=== PATIENT | male | born 1945 | race Caucasian/White ===

== ENCOUNTER → 2016-10-18 | Outpatient (CLI) | payer OTHER ==
[~2016-10-18] MED LIST: IOPAMIDOL (ISOVUE-300) 100 ML BTL IV ONE
--- NOTE | 2016-10-18 18:15 | CT ---
CT Pelvis With IV Contrast on October 18, 2016 Indication: 71-year-old man with history of prostate adenocarcinoma and increasing PSA values. Technique: 1.25 mm thick helically acquired slices were obtained through the pelvis following unevent ful intravenous administration of 90 mL of Isovue-300. Dose reduction techniques were utilized. Comparison: MRI of the pelvis dated August 13, 2016. Findings: No enlarged lymph node or mass has developed within the pelvis. Normal-sized lymph nodes an d veins along the external iliac vale chains are unchanged since 2016. The prostate gland remains mildly enlarged with no discrete mass. Seminal vesicles are symmetric and normal in size. The right indirect inguinal hernia is unchanged and contains the anterior wall of the urinary bladder . The MRI report erroneously states it contains a loop of bladder, that is incorrect, the inguinal he rnia contains the urinary bladder. The left indirect inguinal hernia contains only fat. No bladder wa ll mass or hydronephrosis. The opacified distal ureters are normal in caliber with no filling defect. Bowel pattern normal. Extensive diverticulosis of the sigmoid colon is unchanged. No lytic or blastic bone lesions. The superior third of the sacroiliac joints are partially ankylosed . Impression: 1. No lymphadenopathy or mass has developed since August 2016. 2. No sclerotic bone metastasis or explanation for elevated PSA value. 3. Bilateral indirect inguinal hernias. 4. The right indirect inguinal hernia contains the anterior lateral wall of the urinary bladder (does not contain bowel).
== END ==
LOC: FIMAGING 12:29
PROVIDERS: ATTEND Urology
DX: R97.20 Elevated prostate specific antigen [PSA] (principal); K40.20 Bilateral inguinal hernia, without obstruction or gangrene, not specified as recurrent; Z85.46 Personal history of malignant neoplasm of prostate
CPT/HCPCS: 72193; Q9967

== ENCOUNTER 2017-01-08 09:02 | Observation (INO) | payer OTHER ==
[~2017-01-08 09:02] MED LIST changes: +BUPIVACAINE 0.5% 30 ML SDV ONE; +DEXAMETHASONE 4 MG/ML VIAL ONE; -IOPAMIDOL (ISOVUE-300) 100 ML BTL IV ONE; +LIDOCAINE 1% 30 ML SDV ONE; +LIDOCAINE 2% 100 MG/5 ML SYR ONE; +NA BICARBONATE 50 MEQ/50 ML VIAL ONE; +ONDANSETRON 4 MG/2 ML VIAL ONE; +PROPOFOL 200 MG/20 ML VIAL ONE; +ceFAZolin 2 GM/DEXTROSE 100 ML IV ONE; +fentaNYL 100 MCG/2 ML INJ ONE
[2017-01-08] MEDS ORDERED: LIDOCAINE 1% 2 ML INJ ONE (10:06)
[2017-01-08] MEDS ORDERED: LR 1,000 ML IV ONE (10:23)
[2017-01-08] MEDS ORDERED: CEFAZOLIN 2 GM/DEXTROSE/100 ML BAG IV ONE (10:42)
[2017-01-08] MEDS ORDERED: PROPOFOL 200 MG/20 ML VIAL ONE (12:16)
[2017-01-08] MEDS ORDERED: HYDROmorphONE/DILAUDID 1 MG/ML SYR IVP PRN (13:23)
[2017-01-08] MEDS ORDERED: ONDANSETRON 4 MG/2 ML VIAL IVP PRN (13:23)
--- NOTE | 2017-01-08 13:25 | POSTOPPROG ---
Post Op Note Date of Operation: 01/08/17 Surgeon: Dayo Oates [employer] Specialist: Ramandeep Baez Anesthesiologist: Roland Beebe Anesthesia: GET(General Endotracheal) Pre-op Diagnosis: BI Post-op Diagnosis: same Procedure: Bilateral open hernia repairs with mesh Findings: R>L defects Inf/Abcess present in the surg proc area at time of surgery?: No EBL: Minimal Complications: none
[2017-01-08] MEDS ORDERED: fentaNYL 100 MCG/2 ML INJ ONE (13:45)
[2017-01-08] MEDS: HYDROCODONE/APAP 5/325 TAB PO PRN ×2 (16:35→16:39)
[2017-01-08] MEDS ORDERED: KETOROLAC 15 MG/1 ML SDV IVP SCH (18:00)
[2017-01-08] MEDS: DOCUSATE SODIUM 100 MG CAP PO SCH (21:09)
--- NOTE | 2017-01-09 04:22 | GOP ---
[f rep st] OPERATIVE REPORT DATE OF OPERATION: 01/08/2017 SURGEON: Dayo Oates MD PERMANENT WAVER: Ramandeep Baez, PAC. ANESTHESIOLOGIST: Dr. Beebe. PREOPERATIVE DIAGNOSIS: Bilateral inguinal hernias. POSTOPERATIVE DIAGNOSIS: Bilateral inguinal hernias. PROCEDURE PERFORMED: Open bilateral inguinal hernia repairs with mesh. FINDINGS: The patient was found to have a very large incarcerated right inguinal hernia with bladde r entrapped in the hernia defect. DESCRIPTION OF PROCEDURE: Patient was taken to the operating room where he received satisfactory sp inal anesthesia by Dr. Beebe. He was placed in a supine position. He also received some IV zamzam tion. He was prepped and draped in the usual sterile fashion. Bilateral inguinal incisions were ma de and carried down through the subcutaneous tissue. Hemostasis was obtained with electrocautery an d 3-0 Vicryl ties. External oblique was opened to the external ring on both sides and the cords wer e mobilized from the floor of the canal. On the right side, a very large incarcerated sliding indir ect hernia was encountered. This was carefully dissected free. The bladder was dissected off the w all of the hernia sac and was eventually reduced. This required actually enlarging the internal rin g somewhat. It was eventually reduced. The area was closed with 2-0 Vicryl suture and then, a Covi dien ProGrip patch was placed over the inguinal floor. A split patch was used to pass the limb arou nd the cord structures. It was anchored in place with 0 Surgilon, interrupted sutures, securing it to Natanael's ligament, to the lacunar ligament, to the internal oblique fascia and to the shelving ed ge of the inguinal ligament. The cord and nerve were replaced in the anatomic position. All the ar ea was infiltrated with 0.5% Marcaine and the external oblique was closed with running 2-0 Vicryl sanders ture, subcu through vertical and a skin with a 4-0 Monocryl. Subcuticular stitch on the left side. This section was handled in a similar manner. The cord was mobilized. The cord was searched. The re was no major indirect sac with a full weakness. This was again covered with a Covidien ProGrip p atch and sutured in place in a similar manner with a split patch passing the limb around the cord st ructures. The cord and nerve root were placed in anatomic position. The wound was infiltrated with 0.5% Marcaine. External oblique was closed with a running 2-0 Vicryl suture, subcu with 3-0 Vicryl , skin with 4-0 Monocryl subcuticular stitch. No complications. Blood loss negligible. Taken to r ecovery room in good condition. /[id number]/MODL
[2017-01-09] MEDS ORDERED: LEVOTHYROXINE 25 MCG TAB PO SCH (06:00)
[2017-01-09 08:14] VITALS: TEMP 99.1
[2017-01-09] MEDS: DOCUSATE SODIUM 100 MG CAP PO SCH (08:38)
--- NOTE | 2017-01-09 08:46 | SOAPPROG ---
SOAP Progress Note Assessment/Plan: Assessment/Plan: 71 Y M s/p open BIH repairs, early dementia, prostate CA. Doing well. D/c to home later today. S: Not much pain. Voiding fine. No N/V. O: alert, nad ctab rrr abd soft, inc well dressed. no ecchymosis, min swelling 01/09/17 08:42 Objective: Vital Signs Temp Pulse Resp BP Pulse Ox 37.3 C 76 16 119/70 2 L 01/09/17 08:00 01/09/17 08:00 01/09/17 08:00 01/09/17 08:00 01/09/17 08:00 01/08/17 01/09/17 01/10/17 05:59 05:59 05:59 Intake Total 1430 Output Total 1260 Balance 170 ICD10 Worksheet Patient Problems: Problems Problem Status Onset Inguinal hernia bilateral, non-recurrent Acute - ICD10 Problem Qualifiers (1) Inguinal hernia bilateral, non-recurrent Qualifiers: Obstruction and gangrene presence: O Recurrence: R
[2017-01-09 10:54] LABS: HEMATOCRIT 45.4 % (40.0-51.0)
[2017-01-09 11:58] VITALS: PULSE 76; RESP 16; O2SAT 94
[2017-01-09 15:53] VITALS: BP 139/81
[2017-01-10] MEDS ORDERED: ASPIRIN EC 81 MG TAB PO SCH (09:00)
[2017-01-10] MEDS ORDERED: ENOXAPARIN 40 MG/0.4 ML SYR SC SCH (09:00)
== END 2017-01-09 16:26 | disposition home or self-care (01) ==
LOC: F3N 09:02 → F3E 14:52
PROVIDERS: ADMIT Surgery; ATTEND Surgery
PROC: 0YUA0JZ Supplement Bilateral Inguinal Region with Synthetic Substitute, Open Approach (ICD-10-PCS; principal; 2017-01-08 10:45)
DX: K40.01 Bilateral inguinal hernia, with obstruction, without gangrene, recurrent (principal); C61 Malignant neoplasm of prostate; F03.90 Unspecified dementia, unspecified severity, without behavioral disturbance, psychotic disturbance, mood disturbance, and anxiety; I25.10 Atherosclerotic heart disease of native coronary artery without angina pectoris; E78.2 Mixed hyperlipidemia; E03.9 Hypothyroidism, unspecified; Z87.442 Personal history of urinary calculi; Z82.49 Family history of ischemic heart disease and other diseases of the circulatory system
CPT/HCPCS: 49520; 49521; C1781; G0378; J0690; J1100; J1885; J2001; J2405; J2704; J3010